=== PATIENT | male | born 1990 | race African-American/Black ===

== ENCOUNTER 2016-11-16 08:48 | Emergency (ER) | payer SELFPAY ==
[~2016-11-16] VITALS: Ht 180.3 cm; Wt 65.0 kg
[2016-11-16 08:50] VITALS: BP 127/86; PULSE 102; RESP 20; TEMP 98.4; O2SAT 97
[2016-11-16] MEDS ORDERED: LIDOCAINE 1%/EPINEPHrine 1:100,000 SOLN 20 ML VIAL INFIL ONE (09:15)
[2016-11-16] MEDS ORDERED: IBUP800T23 PO (09:31)
[2016-11-16] MEDS ORDERED: CEPH-460 PO (09:31)
[2016-11-16] MEDS ORDERED: BACT800T5 PO (09:31)
--- NOTE | 2016-11-16 09:32 | PD ---
HPI Chief Complaint: Skin Problem Time Seen by Provider: 09:30 Travel History International Travel<30 days: No Contact w/Intl Traveler<30days: No Traveled to known affect area: No History of Present Illness HPI 26-year-old male presents to the emergency Department with complaint of an abscess to his right buttocks times one week. History of abscess to the same area with incision and drainage. Denies fever, vomiting. Has not taken any medications or tried any treatments to alleviate his symptoms. No known allergies has no medical complaints. No other modifying factors or associated signs and symptoms. PFSH Past Medical History Medical History: Denies Significant Hx Influenza Vaccination: No Past Surgical History Surgical History: No Previous Surgery Social History Alcohol Use: Yes (occas) Tobacco Use: Yes Substance Use: No (marijuana use) Allergies-Medications (Allergen,Severity, Reaction): Coded Allergies: No Known Allergies (Unverified , 11/16/16) Reported Meds & Prescriptions Reported Meds & Active Scripts Active Ibuprofen 800 Mg Tab 800 Mg PO Q6HR PRN Bactrim DS (Sulfamethoxazole-Trimethoprim) 800-160 Mg Tab 1 Tab PO BID 10 Days Keflex (Cephalexin) 500 Mg Cap 500 Mg PO Q6H 10 Days Review of Systems Except as stated in HPI: all other systems reviewed are Neg Physical Exam Narrative GENERAL: Well-nourished, well-developed patient, in no acute distress; afebrile , nontoxic-appearing SKIN: There is an indurated area in the right buttocks which measures about 3 cm in diameter. It is fluctuant but there is no pointing or drainage. There is a zone of inflammation around it but no lymphangitis. HEAD: Atraumatic. Normocephalic. EYES: Pupils equal and round. No scleral icterus. No injection or drainage. ENT: Mucosa pink and moist. Airway patent. NECK: Trachea midline. CARDIOVASCULAR: Regular rate. RESPIRATORY: No accessory muscle use. GASTROINTESTINAL: Flat. MUSCULOSKELETAL: No obvious deformities. No clubbing. No cyanosis. No edema. NEUROLOGICAL: Awake and alert. Oriented 3. No obvious cranial nerve deficits. Motor grossly within normal limits. Normal speech. PSYCHIATRIC: Appropriate mood and affect; insight and judgment normal. Data Data Last Documented VS Vital Signs Date Time Temp Pulse Resp B/P Pulse Ox O2 Delivery O2 Flow Rate FiO2 11/16/16 08:50 98.4 102 20 127/86 97 Room Air Orders Lidocai-Epi 1%-1:100,000 Inj (Xylocaine- (11/16/16 09:15) Wound Culture And Gram Stain (11/16/16 09:32) MDM Medical Decision Making Medical Screen Exam Complete: Yes Emergency Medical Condition: Yes Medical Record Reviewed: Yes Differential Diagnosis Abscess, folliculitis, cellulitis Narrative Course 26-year-old male with an abscess of the right inner buttocks. See my procedure note for incision and drainage. Wound culture pending. Bactrim, Keflex, ibuprofen prescribed for home. Instructed patient to return to the emergency department or follow-up with primary care provider in 48 hours for packing removal. Patient verbalizes understanding and agreement with treatment plan. Patient is medically cleared and stable for discharge. Discussed reasons to return to the emergency department. Instructed patient to follow up with primary care provider. Patient agrees with treatment plan. The patients vital signs are stable and the patient is stable for outpatient follow-up and treatment. Patient discharged home, stable and in no acute distress. Procedures Procedure Narrative INCISION AND DRAINAGE OF ABSCESS: The area was prepped and was sterilely draped. A subcutaneous wheal of 1 % Xylocaine with epinephrine with a total number 2 mL was used to anesthetize the area properly. A number 11 scalpel was used to make a 1 -cm incision across the area of the abscess. The abscess was drained, complex loculations were broken down, and irrigated with normal saline. Cultures were obtained. Quarter inch iodoform packing was placed in the wound. Sterile dressing applied. Patient advised to have packing removed in two days. Diagnosis Primary Impression: Abscess of buttock, right Referrals: Primary Care Physician Patient Instructions: Abscess (ED), Abscess Follow-up (ED), Abscess Incision and Drainage (ED), General Instructions Departure Forms: Tests/Procedures, Work Release Enter return to work date: November 17, 2016 Additional Instructions: Complete full course of antibiotics Warm compresses to the affected area Keep area clean and dry Ibuprofen or Tylenol as directed and as needed for pain and inflammation Follow-up with primary care provider Return to emergency department immediately with worsening of symptoms Med/Other Pt SpecificInfo: Prescription(s) given Scripts Ibuprofen 800 Mg Myp258 Mg PO Q6HR PRN (PAIN) #30 TAB Ref 0 Prov:Maite ReyesP 11/16/16 Sulfamethoxazole-Trimethoprim (Bactrim DS)800-160 Mg Tab1 Tab PO BID 10 Days Ref 0 Prov:Maite Reyes 11/16/16 Cephalexin (Keflex)500 Mg Mdg057 Mg PO Q6H 10 Days Ref 0 Prov:Maite Reyes 11/16/16 Disposition: 01 DISCHARGE HOME Condition: Stable Maite Reyes November 16, 2016 09:32
== END 2016-11-16 09:55 | disposition home or self-care (01) ==
LOC: NEPK 08:48
DX: L02.31 Cutaneous abscess of buttock (principal)
CPT/HCPCS: 10061; 87070